=== PATIENT | male | born 1955 | race Two or more races ===

== ENCOUNTER 2019-05-31 10:17 | Emergency (ER) | payer OTHER ==
[~2019-05-31] VITALS: Ht 170.2 cm; Wt 88.5 kg
[2019-05-31] MEDS ORDERED: FORTAMET1000 MG (10:44)
[2019-05-31] MEDS ORDERED: GLIPIZIDE XL10 MG (10:44)
[2019-05-31] MEDS ORDERED: CARVEDILOL ER40 MG (10:45)
[2019-05-31] MEDS ORDERED: ALDACTONE25 MG (10:45)
[2019-05-31] MEDS ORDERED: ZESTRIL10 M1 (10:45)
[2019-05-31] MEDS ORDERED: LIPITOR40 M1 (10:45)
[2019-05-31] MEDS ORDERED: PLAVIX75 MG (10:46)
[2019-05-31] MEDS ORDERED: NEURONTIN300 MG PO (13:43)
[2019-05-31] MEDS ORDERED: DIAZEPAM10 MG PO (13:43)
== END 2019-05-31 13:52 | disposition home or self-care (01) ==
LOC: ER 10:17
DX: M54.32 Sciatica, left side (principal)